=== PATIENT | male | born 1930 | race Caucasian/White ===

== ENCOUNTER → 2017-08-22 | Outpatient (CLI) | payer MEDICARE ==
[~2017-08-22] MED LIST: AMLODIPINE BESYL5 MG PO; BACLOFEN10 MG PO; BP MEDS PO; FENTANYL CITRATE/PF 100MCG/2 ML INJ ONE; LOVASTATIN40 MG PO; MIDAZOLAM HCL 2 MG/2 ML VIAL ONE; NABUMETONE750 MG PO; NEXIUM40 MG PO; TAMSULOSIN HCL0.4 MG PO
[2017-08-22 09:13] LABS: INR 1.03; PROTHROMBIN TIME 12.7 seconds (11.9-14.5)
[2017-08-22 09:14] LABS: PARTIAL THROMBOPLASTIN TIME 38.2 seconds (23.8-35.5)
--- NOTE | 2017-08-22 13:39 | Diagnostic Imaging Report ---
PROCEDURE:CT GUIDED NEEDLE PLACEMENT COMPARISON:CT chest 07/12/2017. INDICATIONS:RIGHT UPPER LOBE LUNG MASS FINDINGS: Written and verbal consent were obtained. Patient was placed supine. Multiple axial images of the chest were obtained. The right upper lobe lesion was located utilizing an external grid. The overlying skin was prepped and draped in the usual sterile fashion. 1% lidocaine was infused into the subcutaneous and deep tissues for local anesthesia. A 19 gauge guide instrument was advanced into the lesion. The proper position of the needle within the lesion was confirmed with axial images. Fine needle aspiration biopsy samples x3 were obtained with 21 gauge needles. Core biopsy samples x8 were obtained with a 20 gauge biopsy instrument. The specimens were given to pathology, and wasn't bedside. The pathologist determined the specimens to be of proper cellularity for diagnosis. Upon completion of the procedure, the needle was removed. Post biopsy CT demonstrated no pneumothorax. A sterile dressing was applied. There were no immediate complications. The patient tolerated the procedure well. The patient was transferred to the post procedure area in stable unchanged condition for further monitoring. CONCLUSION: Successful fine needle aspiration and core biopsy of a right upper lobe mass utilizing CT guidance. Dictated by: Aashish Wang M.D. on 08/22/2017 at 13:39 Electronically approved by: Aashish Wang M.D. on 08/22/2017 at 13:39
--- NOTE | 2017-08-22 14:29 | Diagnostic Imaging Report ---
PROCEDURE: CHEST XRAY POST PROCEDURE COMPARISON: CT biopsy 08/22/2017. INDICATIONS: POST LUNG BIOPSY FINDINGS: LUNGS: Stable mass in the right upper lobe. PLEURA: No effusions or pneumothorax. HEART \T\ MEDIASTINUM: The heart is within normal size-limits. BONES \T\ SOFT TISSUES: No acute findings. CONCLUSION: Right upper lobe mass. No pneumothorax status post biopsy. Dictated by: Aashish Wang M.D. on 08/22/2017 at 14:29 Electronically approved by: Aashish Wang M.D. on 08/22/2017 at 14:29
== END ==
LOC: CT 07:55
PROVIDERS: ATTEND Internal Medicine Critical Care Medicine
DX: C34.91 Malignant neoplasm of unspecified part of right bronchus or lung (principal)
CPT/HCPCS: 32405; 36415; 71045; 77012; 85049; 85610; 85730; 88172; 88173; 88305; 88342; J2250